=== PATIENT | female | born 1975 | race Caucasian/White ===

== ENCOUNTER 2023-03-03 10:23 | Emergency (ER) | payer OTHER, SELFPAY ==
[2023-03-03 10:30] VITALS: BP 139/91; PULSE 83; RESP 18; TEMP 36.8; O2SAT 98; BMI 30.7
--- NOTE | 2023-03-03 11:09 | ED_ITS ---
HPI - Extremity Injury (Lower) General Chief Complaint: Extremity Pain/Injury, Lower Stated Complaint: right achilles rupture Time Seen by Provider: 03/03/23 10:31 History of Present Illness HPI Narrative: This 48-year-old female was playing pickle ball and felt sudden onset of pain in her right lower leg. Subsequently she was unable to plantar flex her right ankle and suspects an Achilles tendon rupture. She does not report any other injury. Related Data Previous Rx's Medication Instructions Recorded tramadol 50 mg tablet 50 mg PO Q6H PRN pain #20 tabs 03/03/23 Allergies Allergy/AdvReac Type Severity Reaction Status Date / Time latex Allergy Verified 03/03/23 10:29 Review of Systems Status of ROS: Reports: 10 or more systems reviewed and unremarkable except as noted in History and below Narrative: Constitutional: No fevers, no weight gain or loss. Eyes: No discharge. No vision changes. HENT: No congestion, no sore throat, no ear pain. Cardiovascular: No chest pain, no palpitations. Respiratory: No shortness of breath, no wheezes, no cough. Gastrointestinal: No abdominal pain, no vomiting, no diarrhea. Genitourinary: No dysuria, no hematuria. Musculoskeletal: Pain at the right Achilles tendon with decreased ability to plantar flex the right foot. Skin: No rashes, no pruritis. Neurological: No dizziness, weakness, sensory change, speech change. Endo/Heme/Allergies: No bruising or bleeding. No polydipsia. Pysch: no suicidality, no anxiety, no insomnia. All other systems reviewed and are negative. [facility] Medical History (Updated 03/03/23 @ 11:13 by Nasri Terrell MD) Foot pain, left ?M79.672 - Pain in left foot (ICD-10) Social History Smoking Status: Never smoker Do you use any of these nicotine containing products: None Second hand tobacco smoke exposure: No How often do you have a drink containing alcohol: 4 or more times a week How many standard drinks containing alcohol do you have on a typical day: 3 or 4 How often do you have six or more drinks on one occasion: Less than monthly AUDIT-C Alcohol total score: 6 Non-prescribed substance use: denies use service: No Exam Narrative: Exam Narrative: Constitutional: Well-developed, well-nourished, no acute distress. HEENT: Normocephalic, atraumatic. Neck: Normal range of motion. Nontender. Supple. Heart: Regular. No murmurs. Normal rate. Intact distal pulses. Lungs: Clear to auscultation. No chest discomfort. No wheezes, rhonchi, or rales. Abdomen: Normal bowel sounds. Nontender. No rebound tenderness. Genitalia: Deferred. Back: No midline tenderness. Normal range of motion. Extremities: Palpable step-off at the right Achilles tendon typical of tendon rupture. Skin: Intact. No rash. Warm. No erythema or pallor. Neurologic: No altered sensation. No weakness. Alert and oriented. Psychiatric: No suicidality. No anxiety or depression. No insomnia. Nursing notes and vitals signs are reviewed. Const: Vital Signs, click to edit/add: Vital Signs - 24 hr 03/03/23 10:30 Temperature 98.2 F Pulse Rate [Pulse Oximeter] 83 Respiratory Rate 18 Blood Pressure [Ri ght Forearm] 139/91 H Pulse Oximetry 98 Oxygen Delivery Me thod Room Air Course Vital Signs Vital signs: Initial Vital Signs Temperature 98.2 F 03/03/23 10:30 Temperature Source Temporal Artery Scan 03/03/23 10:30 Pulse Rate 83 03/03/23 10:30 Pulse Rhythm Regular 03/03/23 10:30 Respiratory Rate 18 03/03/23 10:30 Blood Pressure 139/91 H 03/03/23 10:30 Blood Pressure Mean 107 H 03/03/23 10:30 Pulse Oximetry 98 03/03/23 10:30 Oxygen Delivery Method Room Air 03/03/23 10:30 Vital Signs Temperature 98.2 F 03/03/23 10:30 Pulse Rate 83 03/03/23 10:30 Respiratory Rate 18 03/03/23 10:30 Blood Pressure 139/91 H 03/03/23 10:30 Pulse Oximetry 98 03/03/23 10:30 Oxygen Delivery Method Room Air 03/03/23 10:30 Temperature 98.2 F 03/03/23 10:30 Pulse Rate 83 03/03/23 10:30 Respiratory Rate 18 03/03/23 10:30 Blood Pressure 139/91 H 03/03/23 10:30 Pulse Oximetry 98 03/03/23 10:30 Oxygen Delivery Method Room Air 03/03/23 10:30 MDM - Extremity Injury (Lower) MDM Narrative Medical decision making narrative: This patient comes in with injury to her right lower leg typical of an Achilles tendon rupture. I contacted the orthopedic physician's health care legal assistant regional education manager to make arrangements for follow-up appointment next week for surgical repair. The patient does have a walking boot at home that she can use. She also has crutches. I did place a posterior splint for now which she can also use or remove if wearing the walking boot. She received a prescription for tramadol. Someone from scheduling will call her on Sunday to arrange for surgical repair. Discharge Plan Discharge Clinical Impression: Achilles tendon rupture Patient Disposition: Home w/ Parent or Adult Condition: Unchanged Additional Instructions: Wear walking boot and ambulate as tolerated with the boot in place. Otherwise it is okay to wear the posterior splint and use crutches. Orthopedic clinic will contact you in a couple days to arrange for follow-up appointment and surgical repair. Take pain medicine as needed and directed. Prescriptions: New tramadol 50 mg tablet 50 mg PO Q6H PRN (Reason: pain) Qty: 20 0RF Follow Up/Referrals: Provider,Not a Local [Primary Care Provider] - Stand Alone Forms: [employer] Info Instructions
== END 2023-03-03 11:26 | disposition home or self-care (01) ==
PROVIDERS: Emergency Provider Emergency Medicine Emergency Medical Services
DX: M66.861 Spontaneous rupture of other tendons, right lower leg (principal); Y93.73 Activity, racquet and hand sports
CPT/HCPCS: 29515; 99283; 99284

== ENCOUNTER 2023-03-08 07:15 | Day surgery (SDC) | payer OTHER, SELFPAY ==
[2023-03-08] VITALS (19 sets, daily range): BP systolic 91–154; BP diastolic 70–103; PULSE 54–78; RESP 12–16; TEMP 36.3–36.7; O2SAT 96–100; BMI 32.1
[2023-03-08 08:10] LABS: Ur HCG Qualitative* Negative (Negative)
[2023-03-08] MEDS: OXYCODONE (CR) 10 MG TAB.ER.12H PO (08:24)
[2023-03-08] MEDS: CELECOXIB 200 MG CAPSULE PO (08:24)
[2023-03-08] MEDS: LACTATED RINGERS 1000 ML 1,000 ML 100 ML IV ×2 (08:24→11:33)
[2023-03-08] MEDS: ACETAMINOPHEN 500 MG TABLET 1000 MG PO (08:24)
[2023-03-08] MEDS: SODIUM CHLORIDE 0.9 % (FLUSH) 10 ML SYRINGE IVF (08:24)
[2023-03-08] MEDS: MIDAZOLAM HCL 1 MG/ML inj IVP (09:00)
[2023-03-08] MEDS: fentaNYL 100 MCG/2 ML inj IVP (09:00)
--- NOTE | 2023-03-08 09:01 | SUR.PREOP ---
TIME?OUT:?0859 PT/RN/MDA?VERIFICATION?OF?SURGICAL?SITE,?PROCEDURE,?AND?CONSENT OBTAINED?PRIOR?TO?INVASIVE?PROCEDURE.
--- NOTE | 2023-03-08 09:08 | W.PM.NB ---
Nerve Block Nerve Block Time Seen by Provider: 09:03 Date Seen: 03/08/23 Type of block requested by surgeon for post-operative analgesia: popliteal Side: right Time out performed: Yes Verification of patient name: Yes Verification of date of : Yes Site marking: site marked Name of person performing procedure: Conner Continuous monitoring Was continuous monitoring of O2 sat, B/P, cardiac rehabilitation program director, recorded every 15 minutes?: Yes Procedure Checklist: sterile prep, needles and gloves Ultrasound guided. Images saved: Yes Medications given in 5ml increments after negative aspiration: Ropivicaine %: 0.5 mL: 20 Needle gauge: 22 Patient tolerated procedure well: Yes Additional comments: Needle noted adjacent to nerve Block Charges Block Charge (with Pro Fee): Sciatic Nerve Use of Ultrasound Machine for Block: Yes- US Guidance/pain block
--- NOTE | 2023-03-08 09:08 | W.ANESCHARGE ---
Anesthesia Charges Start Date/Time Anesthesia Start Date: 03/08/23 Anesthesia Start Time: 09:49 Stop Date/Time Anesthesia Stop Date: 03/08/23 Anesthesia Stop Time: 12:03
[2023-03-08] MEDS: CEFAZOLIN 2 GM INJ IVP (09:55)
--- NOTE | 2023-03-08 11:27 | P.ORPRC_ITS ---
Procedure Note Date of procedure: 03/08/23 Procedure: SURGEON: Ron Cruz MD TESTER WAFER SUBSTRATE: REKHA Sanchez PREOPERATIVE DIAGNOSIS: Right lower extremity Achilles rupture POSTOPERATIVE DIAGNOSIS: Right lower extremity Achilles rupture NAME OF OPERATION: Primary repair with flexor hallucis longus augmentation ANESTHESIA: Spinal, plus popliteal block ESTIMATED BLOOD LOSS: 0 mL COMPLICATIONS: None SPECIMENS: None DRAINS: None PREOPERATIVE ANTIBIOTICS: Ancef for gram INDICATIONS: The patient is a 48-year-old who sustained a right lower extremity Achilles tendon rupture. Primary repair with FHL augmentation was recommended. The risks, benefits and expected outcomes were discussed in detail. These included but were not limited to: Infection, bleeding, injury to blood vessel or nerve, venous thromboembolism. All questions were answered to their satisfaction. Use of an recycling assistant was necessary throughout the case for patient positioning and safety, soft tissue retraction and closure. PROCEDURE: A popliteal block was placed by anesthesia. The patient was placed supine on the operating room table. Spinal anesthesia was administered. The right lower extremity was prepped and draped in the usual sterile fashion. The limb was exsanguinated with the Jaylon bandage. The pneumatic tourniquet was inflated to 300 mmHg. A longitudinal incision was made medially, over the Achilles tendon. Subcutaneous dissection was taken sharply to the Achilles which was completely ruptured. The recycling assistant was used to retract the soft tissues and protect them. The tear was in the typical location. However her Achilles tendon is quite short and gastrocs and soleus muscle bellies extend far distally. Therefore, the tear was at the musculotendinous junction. A #2 FiberWire suture was placed in each end of the Achilles in a modified Krackow stitch. Attention was then turned to the FHL graft harvest. The deep fascia over the FHL was longitudinally divided. The FHL muscle belly was mobilized off of the fibula. Care was taken to protect the tibial nerve. We elected to proceed with a long FHL graft harvest. Therefore, a longitudinal incision was made over the medial border of the foot in the junction between the normal and glabrous skin. Subcutaneous dissection sharply taken to the abductor hallucis muscle. The muscle was elevated off of the bone and retracted plantarly. Crossing veins were cauterized. The master knot of Rakan was encountered. The FHL tendon was isolated and was divided, just distal to the master knot of Rakan. The graft was pulled into the proximal wound. We then passed the FHL graft from anterior to posterior through the distal stump of the tendon, just proximal to its insertion. The ankle was placed in plantar flexion and the FiberWire sutures were tied securing the primary repair of the Achilles tendon. We then placed the ankle at 90? and tensioned the FHL graft and sutured it to the distal stump of the Achilles tendon with an 0 Vicryl suture. It was secured along the medial border of Achilles with multiple interrupted horizontal mattress 0 Vicryl sutures. It was then advanced distally again across the rupture site and secured to the achilles again. This provided an excellent repair of the Achilles with augmentation. There is no tension on the repair with the ankle in a neutral position. The wounds were irrigated with normal saline. The recycling assistant closed soft tissue with a 2-0 Vicryl deep and a 3-0 Monocryl in a subcuticular fashion. Glue was used to seal the skin. The recycling assistant placed a dry dressing and short leg Mo Ruffin splint with the ankle in 20? of plantar flexion. The tourniquet was released. Sponge and needle counts were correct x 2. The patient tolerated the procedure well. There were no apparent complications. They were carefully transferred to the hospital bed and [facility]. PLAN: The patient will be discharged to home. They will remain strict nonweightbearing on the lower extremity. They will continue to work on ice and elevation. They will follow up in the office in 2 weeks for a wound check. If there are no wound issues we will place them in a CAM walker and allow them to weightbear as tolerates. Additionally, we will likely begin some early physical therapy.
--- NOTE | 2023-03-08 12:03 | W.ANESCHARGE ---
Anesthesia Charges Start Date/Time Anesthesia Start Date: 03/08/23 Anesthesia Start Time: 09:49 Stop Date/Time Anesthesia Stop Date: 03/08/23 Anesthesia Stop Time: 12:03
== END 2023-03-08 13:41 | disposition home or self-care (01) ==
PROVIDERS: Visit Provider Orthopaedic Surgery
PROC: (CPT 27650; principal; 2023-03-08 09:15)
DX: S86.011A Strain of right Achilles tendon, initial encounter (principal); G89.18 Other acute postprocedural pain
CPT/HCPCS: 27652; 1472; 64445; 76942; 81025; A9270; J0690; J2250; J2405; J2704; J3010; J7120

== ENCOUNTER 2023-07-17 08:15 | Outpatient (RCR) | payer OTHER, SELFPAY | END 2023-07-26 13:33 | disposition home or self-care (01) | PROVIDERS: Visit Provider Physician Assistant | DX: Z98.890 Other specified postprocedural states (principal); M25.571 Pain in right ankle and joints of right foot; M25.671 Stiffness of right ankle, not elsewhere classified; R53.1 Weakness; R26.9 Unspecified abnormalities of gait and mobility; Z51.89 Encounter for other specified aftercare | CPT/HCPCS: 97110; 97112; 97140; 97162 ==

== ENCOUNTER 2023-11-29 06:04 | Day surgery (SDC) | payer OTHER, SELFPAY ==
[2023-11-29 06:34] VITALS: BP 132/88; PULSE 84; RESP 16; TEMP 36.5; O2SAT 96; BMI 33.0
[2023-11-29] MEDS: LACTATED RINGERS 1000 ML 1,000 ML 100 ML IV (07:05)
[2023-11-29] MEDS: SODIUM CHLORIDE 0.9 % (FLUSH) 10 ML SYRINGE IVF (07:05)
[2023-11-29 07:09] LABS: Ur HCG Qualitative* Negative (Negative)
[2023-11-29] MEDS: LIDOCAINE 1% MDV 20 ML INJECTION (07:36)
[2023-11-29 08:09] VITALS: BP 118/74; PULSE 82; RESP 16; TEMP 36.2; O2SAT 98
--- NOTE | 2023-11-29 08:13 | W.ANESCHARGE ---
Anesthesia Charges Start Date/Time Anesthesia Start Date: 11/29/23 Anesthesia Start Time: 07:15 Stop Date/Time Anesthesia Stop Date: 11/29/23 Anesthesia Stop Time: 08:11
[2023-11-29 08:15] VITALS: BP 123/82; PULSE 82; RESP 16; O2SAT 98
[2023-11-29 08:30] VITALS: BP 129/82; PULSE 72; RESP 16; O2SAT 100
[2023-11-29 08:45] VITALS: BP 133/78; PULSE 79; RESP 16; O2SAT 100
--- NOTE | 2023-11-29 11:39 | W.ANESCHARGE ---
Anesthesia Charges Start Date/Time Anesthesia Start Date: 11/29/23 Anesthesia Start Time: 07:15 Stop Date/Time Anesthesia Stop Date: 11/29/23 Anesthesia Stop Time: 08:11
--- NOTE | 2023-11-29 13:48 | W.PM.GYNPROC ---
Procedure Note Date of procedure: 11/29/23 Will [facility] bill your pro fee for this procedure?: Yes Pre-op diagnosis: Perimenopausal menorrhagia Uterine fibroid Post-op diagnosis: Perimenopausal menorrhagia Uterine fibroid partially impinging on endometrial cavity Procedure: Hysteroscopy, dilation and curettage, partial resection of submucous fibroid Anesthesia: MAC and local Complications: None Surgeon: Nicolasa Coffman MD Estimated blood loss (mL): 15 IV fluids (mL): 600 Urine Output (mL): 30 Pathology: specimen obtained, sent to pathology (Endometrial curettings and fragments of submucous fibroid; verbally confirmed title of specimen and intend to send for pathology at time of postoperative debrief) Condition: stable Disposition: same day Findings: 1. Upon bimanual exam under anesthesia, uterus was mobile, anteverted, bulky and enlarged. Uterus sounded to 12 cm. There were no palpable adnexal masses. The posterior lip of cervix was adherent to the vaginal vault. 2. Upon hysteroscopy, survey of the endometrium revealed an enlarged cavity with fibroid bulging diffusely into the left side of the endometrial cavity. The endometrium was normal in appearance. 3. Saline deficit 1945 mL at the end of procedure. Procedure Description: Procedure in detail: Patient was taken to the operating room with IV running. She was positioned in dorsal lithotomy position with her legs fully supported in Yellofin stirrups. Monitored anesthesia care was administered. She was prepped and draped in the usual sterile fashion. Exam under anesthesia was performed for the above-noted findings. Speculum was inserted. Cervix visualized and grasped along the anterior lip with a single-tooth tenaculum. Cervix was serially dilated to accommodate the TRUCLEAR hysteroscope. This was assembled with saline inflow and outflow in place. The line was flushed of bubbles. The hysteroscope was advanced through the cervix into the endometrial cavity for the above noted findings. The mini dense tissue morcellator was then inserted through the operating channel. Under direct visualization, the endometrial cavity was circumferentially curetted with the tissue morcellator. The portions of this submucous fibroid directly beneath the endometrial cavity were resected, resulting in an endometrial cavity of a more usual contour. Resection was stopped once the saline deficit approached 2000 mL. The hysteroscope and morcellator were then removed from the uterus. Tenaculum was removed from the anterior lip of cervix. Hemostasis was noted. Patient tolerated procedure well. She was taken to recovery area in stable condition.
== END 2023-11-29 09:00 | disposition home or self-care (01) ==
LOC: OR 06:05
PROVIDERS: Visit Provider Obstetrics & Gynecology
PROC: 0UDB8ZZ Extraction of Endometrium, Via Natural or Artificial Opening Endoscopic (ICD-10-PCS; CPT 58558; principal; 2023-11-29 07:15)
DX: N92.4 Excessive bleeding in the premenopausal period (principal); D25.0 Submucous leiomyoma of uterus
CPT/HCPCS: 58561; 00952; 36415; 81025; 86850; 86900; 86901; 88305; J1885; J2250; J2704; J3010; J3490; J7120